=== PATIENT | female | born 2000 | race Hispanic/Latino ===

== ENCOUNTER 2022-07-06 23:46 | Emergency (ER) | payer OTHER, MEDICAID ==
[~2022-07-06] VITALS: Ht 157.5 cm; Wt 55.1 kg
[2022-07-07 00:39] LABS: BASOPHILS % (AUTO) 0.3 % (0.0-5.0); EOSINOPHILS % (AUTO) 1.4 % (0.0-8.0); HEMATOCRIT 40.2 % (36-48); LYMPHOCYTES % (AUTO) 14.6 % (21.0-51.0); MEAN CORPUSCULAR HGB CONC 33.8 g/dL (32.0-36.0); MEAN CORPUSCULAR VOLUME 88.5 fL (80-100); MONOCYTES % (AUTO) 4.8 % (3.0-13.0); NEUTROPHILS % (AUTO) 78.1 % (40.0-77.0); PLATELET COUNT (AUTO) 303 K/uL (130-400); RED BLOOD CELL COUNT(AUTO) 4.54 MIL/uL (4.00-5.50); RED CELL DISTRIBUTION WIDTH 12.4 % (11.0-15.5); WHITE BLOOD COUNT (AUTO) 11.3 K/uL (4.8-10.8)
[2022-07-07 00:59] LABS: CREATININE 0.7 mg/dL (0.5-1.5); POTASSIUM 3.9 mmol/L (3.5-5.1)
[2022-07-07 01:04] LABS: ALBUMIN 3.5 g/dL (3.5-5.0)
[2022-07-07] MEDS ORDERED: IOHEXOL-350 50ML VIAL IV ONE (01:11)
[2022-07-07] MEDS ORDERED: UNASYN 3GM VIAL IV ONE (02:00)
[2022-07-07] MEDS ORDERED: DEXAMETHASONE SOD PHOSPHATE 4 MG/ML 1ML VIAL IV ONE (02:00)
[2022-07-07] MEDS ORDERED: 0.9%NACL 50ML 50 ML IV ONE (02:19)
[2022-07-07] MEDS ORDERED: AMPICILLIN/SULBAC 1.5GM VIAL ONE (02:19)
[2022-07-07 04:51] VITALS: BP 108/70
== END 2022-07-07 05:01 | disposition short-term general hospital (02) ==
LOC: EDH 23:46
DX: J36 Peritonsillar abscess (principal); Z20.822 Contact with and (suspected) exposure to COVID-19
CPT/HCPCS: 99285; 87635; 80053; 85025; 87880; 86308; 81025; 36415; 96365; 70491; 96375; C9803; J1100; J0295; Q9967; 96374